=== PATIENT | male | born 1980 | race Caucasian/White ===

== ENCOUNTER 2019-11-15 22:41 | Inpatient (IN) | payer SELFPAY ==
[~2019-11-15] VITALS: Ht 190.5 cm; Wt 81.3 kg
[2019-11-15 23:15] LABS: PCO2 Arterial 62.1 mmHg (35-45); PO2 Arterial 117 mmHg (80-100)
[2019-11-15 23:16] LABS: pH Blood Arterial 6.99 (7.35-7.45)
[2019-11-15 23:33] LABS: Source, Urine Catheter
[2019-11-15 23:40] LABS: BASOPHILS ABSOLUTE AUTO 0.12 K/mm3 (0.00-0.23); BASOPHILS PERCENT AUTO 1 % (0-2); EOSINOPHILS ABSOLUTE AUTO 0.29 K/mm3 (0.00-0.68); EOSINOPHILS PERCENT AUTO 2 % (0-6); Hematocrit 45.4 % (37.0-53.0); Hemoglobin 14.2 g/dL (13.5-17.5); IMMATURE GRAN ABSOLUTE AUTO 0.48 K/mm3 (0.00-0.10); IMMATURE GRAN PERCENT AUTO 3 % (0-1); LYMPHOCYTES PERCENT AUTO 42 % (21-46); MONOCYTES ABSOLUTE AUTO 1.02 K/mm3 (0.16-1.47); MONOCYTES PERCENT AUTO 7 % (4-13); Mean Corpuscular HGB 28.5 pg (26.0-34.0); Mean Corpuscular HGB Conc 31.3 g/dL (31.5-36.5); Mean Corpuscular Volume 91 fL (80-100); Mean Platelet Volume 9.9 fL (9.1-12.4); NEUTROPHILS ABSOLUTE AUTO 6.64 K/mm3 (1.96-9.15); NEUTROPHILS PERCENT AUTO 45 % (41-73); Platelet Count 371 K/mm3 (150-400); RDW Coefficient Variation 13.7 % (11.7-14.2); RDW Standard Deviation 46.3 fL (35.1-46.3); Red Blood Cell Count 4.99 M/mm3 (4.30-5.90); White Blood Cell Count 14.75 K/mm3 (4.00-11.30)
[2019-11-15 23:41] LABS: Bilirubin, Urine Neg (Neg); Blood, Urine 2+ (Neg); Glucose Qualitative, Urine Neg (Neg); Ketones, Urine 1+ (Neg); Leukocyte Esterase, Urine 1+ (Neg); Nitrite, Urine Neg (Neg); Protein, Urine 2+ (Neg); Specific Gravity, Urine 1.025 (1.003-1.022); Urobilinogen, Urine NORM (Normal)
[2019-11-15 23:44] LABS: Appearance, Urine Hazy (Clear); Color, Urine Yellow (P-Yellow)
[2019-11-15 23:50] LABS: Amorphous Mod (0-Heavy); Bacteria Mod /hpf; Spermatozoa Few /hpf; Squamous Epithelial Cells Rare /hpf (Few); White Blood Cells, Urine 25-50 /hpf (0-5)
[2019-11-15 23:51] LABS: U Amphetamine Screen DETECTED; U Barbituate Screen Not Detected; U Benzodiazapine Screen Not Detected; U Buprenorphine Screen Not Detected; U Cannabinoids Screen DETECTED; U Cocaine Screen Not Detected; U Methadone Screen Not Detected; U Methamphetamine Screen DETECTED; U Opiates Screen Not Detected; U Oxycodone Screen Not Detected; U Phencyclidine Screen Not Detected; U Propoxyphene Screen Not Detected
[2019-11-16 00:01] LABS: Acetaminophen, Random <2.0 ug/mL (10.0-30.0); CPK Creatine Kinase 395 U/L (39-308); Creatine Kinase MB 3.8 ng/mL (0.0-3.6); Ethanol (Alcohol), Blood, Med 37 mg/dL; Magnesium, Blood 1.9 mg/dL (1.6-2.4); Salicylate 2.9 mg/dL (2.8-20.0); Troponin I 0.072 ng/mL (0.000-0.040)
[2019-11-16 00:37] LABS: Alanine Aminotransfer (ALT/SGP 39 U/L (12-78); Albumin, Blood 3.5 g/dL (3.4-5.0); Albumin/Globulin Ratio 1.1 (0.8-1.8); Alk Phos 89 U/L (50-136); Anion Gap 14 mmol/L (6-16); Aspartate Aminotrans (AST/SGOT 44 U/L (12-37); Bilirubin, Total 0.2 mg/dL (0.1-1.0); Blood Urea Nitrogen 15 mg/dL (8-24); Bun/Creatinine Ratio 11.5 (12.0-20.0); CO2, Blood 17 mmol/L (21-32); Calcium, Blood 7.6 mg/dL (8.5-10.1); Chloride, Blood 110 mmol/L (98-108); Creatinine, Blood 1.31 mg/dL (0.60-1.20); Globulin, Blood 3.1 g/dL (2.2-4.0); Glomerular Filtration Rate >60 (60-); Glucose, Blood 247 mg/dL (70-99); Potassium, Blood 3.6 mmol/L (3.5-5.5); Sodium, Blood 141 mmol/L (136-145); Total Protein, Blood 6.6 g/dL (6.4-8.2)
--- NOTE | 2019-11-16 01:23 | NUR ---
PT ARRIVES TO ICU 4 VIA GURNEY FROM ER. HE IS SEDATED WITH PROPOFOL AT 70 MCG/KG/MIN TO LEFT FOREARM IV ACCESS VIA INFUSION PUMP, PROPOFOL IS PUT TO STANDBY, CLAMPED, AND REMOVED FROM ER GURNEY INFUSION PUMP FOR SLIDE TRANSFER TO BED. SOFT RESTRAINTS ARE NOTED IN PLACE ON ARRIVAL FROM ER. ETT 8.0, 26 AT LIP, 25 AT TEETH AT THIS TIME, RT AT BEDSIDE FOR VENT MANAGEMENT, AC 16, TV 500, FIO2 45%, PEEP 5, PT SATS ARE HIGH 90S WITH THESE SETTINGS, LUNGS ARE CLEAR THROUGHOUT AT THIS TIME, RATE 20. HRR, SINUS ON MONITOR, RATE 80S, PRESSURES IMPROVED FROM REPORTED AT ARRIVAL TO ER, SKIN IS PWD, BRISK CAP REFILL, FINE RASH IS NOTED TO TORSO, NO EDEMA IS NOTED AT THIS TIME, DEFIB PADS ARE NOTED IN PLACE, PER RT AT BEDSIDE, PT WAS SHOCKED X 2 IN ER FOR CARDIOVERSION. HE IS NOTED TO HAVE A COUGH AND SWALLOW REFLEX WITH PROPOFOL ON STANDBY, MINIMAL RESPONSE TO DEEP STERNAL RUB, WILL TITRATE PROPOFOL DOWN TOLERATED AND MONITOR. PUPILS ARE EQUAL BILAT, 1, BRISK BUT SLIGHT REACTION, NO EYE MOVEMENT IS NOTED AT THIS TIME. OROGASTRIC TUBE IS PLACED AND PT TOLERATED WELL, PLACEMENT CONFIRMED WITH RETURN OF GASTRIC CONTENTS WELL AUSCULTATION OF AIR OVER LUQ WITH 60 ML AIR FLUSH, PLACED TO LIS, BROWN/CLEAR DRAINAGE AT THIS TIME, ABD FLAT, ACTIVE BOWEL TONES X 4, NO REACTION TO PALPATION, ABD SOFT. TEMP PROBE BURGOS IN PLACE DRAINING CLEAR YELLOW URINE TO GRAVITY. ORAL CARE PROVIDED, BLOOD IS NOTED IN PT'S MOUTH.
[2019-11-16 03:13] LABS: BASOPHILS ABSOLUTE AUTO 0.05 K/mm3 (0.00-0.23); BASOPHILS PERCENT AUTO 0 % (0-2); EOSINOPHILS ABSOLUTE AUTO 0.12 K/mm3 (0.00-0.68); EOSINOPHILS PERCENT AUTO 1 % (0-6); Hematocrit 42.1 % (37.0-53.0); Hemoglobin 13.9 g/dL (13.5-17.5); IMMATURE GRAN ABSOLUTE AUTO 0.13 K/mm3 (0.00-0.10); IMMATURE GRAN PERCENT AUTO 1 % (0-1); LYMPHOCYTES ABSOLUTE AUTO 2.87 K/mm3 (0.84-5.20); LYMPHOCYTES PERCENT AUTO 16 % (21-46); MONOCYTES ABSOLUTE AUTO 1.37 K/mm3 (0.16-1.47); MONOCYTES PERCENT AUTO 8 % (4-13); Mean Platelet Volume 9.6 fL (9.1-12.4); NEUTROPHILS ABSOLUTE AUTO 13.22 K/mm3 (1.96-9.15); NEUTROPHILS PERCENT AUTO 74 % (41-73); Platelet Count 263 K/mm3 (150-400); RDW Standard Deviation 45.6 fL (35.1-46.3); Red Blood Cell Count 4.79 M/mm3 (4.30-5.90); White Blood Cell Count 17.76 K/mm3 (4.00-11.30)
[2019-11-16 03:14] LABS: Mean Corpuscular Volume 88 fL (80-100)
[2019-11-16 03:37] LABS: Creatine Kinase MB 12.1 ng/mL (0.0-3.6)
[2019-11-16 03:51] LABS: Creatine Kinase MB Index 0.4 (0.0-4.0)
[2019-11-16 06:15] LABS: Base Excess Venous -0.7 mmol/L; Bicarbonate Venous 23.8 mmol/L (24.0-30.0); PCO2 Venous 41.3 mmHg (38-42); PO2 Venous 97.7 mmHg (38-42); pH Blood Venous 7.38 (7.34-7.37)
--- NOTE | 2019-11-16 06:34 | NUR ---
PT NEW ADMIT THIS SHIFT, REMAINS INTUBATED AND SEDATED, PROPOFOL GTT HAS BEEN SLOWLY DECREASED TO 55 MCG/KG/MIN OF THIS TIME, PT IS INCREASINGLY RESPONSIVE TO NOXIOUS STIMULI, CONTINUES WITHOUT RESPONSE TO VERBAL STIMULI, PUPILS REMAIN AT 1 WITH BRISK REACTION BILAT. HRR, CONTINUES IN SINUS, RATE 80S, PRESSURES MAINTAINING, SKIN REMAINS PWD, NO EDEMA. RASH TO TORSO CONTINUES WITHOUT CHANGE. LUNGS REMAIN CLEAR THROUGHOUT, SATS MAINTAIN WITH VENT SETTINGS UNCHANGED, RATE REMAINS HIGH TEENS LOW 20S. TEMP PROBE BURGOS IN PLACE, PT AFEBRILE SINCE ARRIVAL TO ICU, CLEAR YELLOW URINE DRAINING TO GRAVITY ALTHOUGH SMALL AMOUNT OF SEDIMENT WAS NOTED IN TUBING WITH EMPTYING DRAINAGE BAG FOR I&O THIS AM.
[2019-11-16 06:43] LABS: Influenza A Negative (NEGATIVE); Influenza B Negative (NEGATIVE)
--- NOTE | 2019-11-16 09:08 | NUR ---
PT SEDATED ON PROPOFOL AT 55MCG FOR MECH VENT. PT PARTIALLY OPENS EYES, SOMEWHAT AGITATED, VENT STACKING. PT DOES NOT FOLLOW DIRECTIONS. IV W PROPOFOL FOUND TO BE LEAKING. NEW IV STARTED. FENT 50MCG GIVEN, PROPOFOL REMAINS AT 55MCG; PT NOW ADEQUATELY SEDATED. BP, HEART RATE/RHYTHM STABLE. SATS 100% ON 45% FIO2. PT FOUND TO BE HYPOTHERMIC AT 96.1 VIA BURGOS CATH TEMP PROBE. WARM BLANKETS PLACED. TEMP CONT TO DECREASE DOWN TO 95.9. BEAR HUGGER PLACED. PT HAS VERY POOR URINE OUTPUT AT APPROX 11CC/HR. WILL UPDATE DR LEÓN.
--- NOTE | 2019-11-16 09:49 | NUR ---
DR LEÓN IN TO SEE PT; FULL UPDATE GIVEN.
--- NOTE | 2019-11-16 11:02 | NUR ---
20G IV TO PT'S LEFT WRIST STARTED IN ER/NOT CHARTED. THIS IV WAS FOUND TO BE LEAKING. IV DC'D INTACT. IV TO PT'S RIGHT FOOT PLACED BY ED/NOT CHARTED. THIS IV DC'D INTACT D/T LOCATION. 2 PIV STARTED W/O DIFFICULTY; PT TOW.
--- NOTE | 2019-11-16 12:00 | NUR ---
AT 1200 PT'S TEMP 98.2; CALLIE MOULTON PLACED ON STANBY
--- NOTE | 2019-11-16 13:06 | NUR ---
Echocardiogram completed.
[2019-11-16 13:58] LABS: Troponin I 0.647 ng/mL (0.000-0.040)
--- NOTE | 2019-11-16 14:37 | NUR ---
PT WITH NO URINE OUTPUT SINCE 1130; DR LEÓN NOTIFIED. UNABLE TO FLUSH CATHETER D/T PLUG. CATHETER DC'D AND NEW 16F COUDE PLACED W/O DIFFICULTY. 350CC YELLOW URINE OUTPUT WITHIN 5MIN. URINE SEDIMENT IMPROVED. DR LEÓN CHANGED VENT SETTINGS TO SPONT PS 2, 40% FIO2. PT TOLERATING WELL. PT WOKE UP, EYES OPENED, MOUTHED WORDS, WAS UNABLE TO FOLLOW DIRECTIONS. FENT IVP GIVEN FOR AGITATION. PT SLEEPING NOW, APPEARS COMFORTABLE. PT'S MOTHER CALLED TO UPDATE HER HE HAS NO CHILDREN AND SHE IS NEXT OF KIN; ROMELIA NOTIFIED. PT'S COUSIN WHOM IS LISTED EMERGENCY CONTACT AT BEDSIDE.
--- NOTE | 2019-11-16 16:33 | NUR ---
PT REQUIRING MORE SEDATION D/T INCREASED AGITATION. PROPOFOL INCREASED FROM 65MCG TO 75MCG. FENT GIVEN Q 2-3HRS. RECTAL TEMP PROBE PLACED. 98.2 DEGREES. BP TRENDING UP WITH SOME MILD HTN.
--- NOTE | 2019-11-16 19:00 | NUR ---
ASSUMED CARE OF PT, BEDSIDE REPORT RECEIVED. PT IS GRIMACING, RESTLESS IN BED, PULLING AGAINST BILAT WRIST RESTRAINTS AND COUGHING AT THIS TIME. PROPOFOL GTT AT 75 MCG/KG/MIN, FENTANYL 100 MCG IV ADMIN BY OFFGOING RN JAYANT HARRINGTON. PT REMAINS INTUBATED WITH 8.0 ETT, 26 CM AT TEETH, VENT IS SET ON SPONTANEOUS, RESP RATE NEAR 20 AT THIS TIME, TIDAL VOLUMES ARE 5-600, SATS ARE MID TO UPPER 90S, RT AT BEDSIDE FOR VENT CHECK. HRR, SINUS ON MONITOR WITH RATE IN THE 70-80S, PRESSURES ARE MAINTAINING AT THIS TIME, SKIN IS PWD, PEDAL PULSES ARE FULL AND EQUAL BILAT, NO EDEMA IS NOTED. BURGOS CATH IN PLACE, NO LONGER TEMP PROBE, URINE IS DARK YELLOW IN UROMETER, APPROX 30 ML PRESENT AT THIS TIME.
--- NOTE | 2019-11-16 19:30 | NUR ---
RESTLESSNESS/AGITATION PT RESTLESS, COUGHING, BITING AT ETT, PULLING AGAINST BILAT WRIST RESTRAINTS, DOES NOT REDIRECT WELL AT THIS TIME, PROPOFOL GTT INCREASED TO 90 MCG/KG/MIN AT THIS TIME, WILL MONITOR.
--- NOTE | 2019-11-16 20:00 | NUR ---
ASSESSMENT PT IS RESTING QUIETLY AT THIS TIME, DOES OPEN EYES WITH ORAL CARE, HOWEVER TOLERATES WELL. SATS ARE NOTED TO BE DECREASING TO HIGH 80S WITH VENT SETTINGS UNCHANGED. LUNG SOUNDS ARE COARSE THROUGHOUT, ETT SUCTIONED, PRODUCTIVE OF MODERATE AMOUNT OF THICK GREEN SPUTUM, DISCUSSED LUNG SOUNDS WITH RT VIA VOCERA, LUNG SOUNDS WERE CLEAR AT THE TIME OF BEDSIDE REPORT. PT LUNG SOUNDS RETURN TO CLEAR POST PT COUGH AND ETT SUCTIONING, SATS RETURN TO BASELINE. ACTIVE BOWEL TONES ARE PRESENT AT THIS TIME, ABD SOFT, NO GUARDING NOTED WITH PALPATION. RASH TO TORSO IS IMPROVED.
--- NOTE | 2019-11-17 03:20 | NUR ---
ELEVATED TEMP RECTAL PROBE TEMP NOTED 102.9, ICE PACK PLACED TO GROIN AND RIGHT ANTERIOR CLAVICLE, FAN PLACED ON BEDSIDE TABLE AND SET ON HIGH. CALL PLACED TO HOSPITALIST REMELT PAN TANK OPERATOR REGARDING INCREASED TEMP. TYLENOL ORDERS RECEIVED.
[2019-11-17 03:54] LABS: BASOPHILS ABSOLUTE AUTO 0.03 K/mm3 (0.00-0.23); BASOPHILS PERCENT AUTO 0 % (0-2); EOSINOPHILS ABSOLUTE AUTO 0.14 K/mm3 (0.00-0.68); EOSINOPHILS PERCENT AUTO 2 % (0-6); Hematocrit 43.6 % (37.0-53.0); Hemoglobin 13.5 g/dL (13.5-17.5); IMMATURE GRAN ABSOLUTE AUTO 0.01 K/mm3 (0.00-0.10); IMMATURE GRAN PERCENT AUTO 0 % (0-1); LYMPHOCYTES ABSOLUTE AUTO 1.66 K/mm3 (0.84-5.20); LYMPHOCYTES PERCENT AUTO 20 % (21-46); MONOCYTES ABSOLUTE AUTO 0.34 K/mm3 (0.16-1.47); MONOCYTES PERCENT AUTO 4 % (4-13); Mean Corpuscular HGB 28.2 pg (26.0-34.0); Mean Corpuscular Volume 91 fL (80-100); Mean Platelet Volume 10.1 fL (9.1-12.4); NEUTROPHILS ABSOLUTE AUTO 6.01 K/mm3 (1.96-9.15); NEUTROPHILS PERCENT AUTO 73 % (41-73); Platelet Count 220 K/mm3 (150-400); RDW Coefficient Variation 14.5 % (11.7-14.2); RDW Standard Deviation 48.8 fL (35.1-46.3); Red Blood Cell Count 4.78 M/mm3 (4.30-5.90); White Blood Cell Count 8.19 K/mm3 (4.00-11.30)
--- NOTE | 2019-11-17 04:00 | NUR ---
ELEVATED TEMP TEMP INCREASED TO 103.8, TYLENOL MS AVAILABLE FROM PHARMACY AND ADMIN, ADD ICE PACKS PLACED TO AXILLA BILAT. WILL CONT TO MONITOR.
[2019-11-17 04:12] LABS: Anion Gap 6 mmol/L (6-16); Blood Urea Nitrogen 15 mg/dL (8-24); Bun/Creatinine Ratio 12.8 (12.0-20.0); CO2, Blood 28 mmol/L (21-32); Calcium, Blood 7.9 mg/dL (8.5-10.1); Chloride, Blood 109 mmol/L (98-108); Creatinine, Blood 1.17 mg/dL (0.60-1.20); Glomerular Filtration Rate >60 (60-); Glucose, Blood 76 mg/dL (70-99); Potassium, Blood 3.6 mmol/L (3.5-5.5); Sodium, Blood 143 mmol/L (136-145)
--- NOTE | 2019-11-17 05:30 | NUR ---
SPOKE WITH DR LEÓN REGARDING PROPOFOL AND FENTANYL REQUIREMENTS FOR SEDATION THIS SHIFT, PT ELEVATED TEMP, AND SPUTUM SUCTIONED FROM ETT. ORDERS RECEIVED. WILL INITIATE PRECEDEX ON ARRIVAL FROM PHARMACY AND TITRATE PROPOFOL PER ORDERS.
--- NOTE | 2019-11-17 06:50 | NUR ---
PT REMAINS INTUBATED, VENT REMAINS ON SPONT WITH PEEP AT 5, FIO2 TITRATED UP TO 60% THROUGHOUT SHIFT SECONDARY TO PT SATS DECREASING TO MID 80S, COUGH FREQUENCY HAS INCREASED, SPUTUM PRODUCTION HAS INCREASED, COLOR LIGHTENED FROM GREEN TO BROCK/GREEN, LUNGS INITIALLY COARSE BUT CLEARED WITH SUCTIONING PROGRESSED TO MAINTAINING COARSE AFTER SUCTION. SEDATION REQUIREMENTS INCREASED PROPOFOL AT 90 MCG/KG/MIN MOST OF THIS SHIFT, ATTEMPTS TO TITRATE DOWN TO 85 REPEATEDLY RESULTED IN PT SITTING UP AND PULLING AGAINST BILAT WRIST RESTRAINTS, DID NOT FOLLOW DIRECTIONS, FENTANYL 100 MCG IV REQUIRED EVERY 1-2 HOURS IN ADDITION TO PROPOFOL, DISCUSSED SEDATION REQUIREMENTS WITH DR LEÓN THIS AM AND ORDERS RECEIVED FOR PRECEDEX AND ATIVAN AND TO KEEP PROPOFOL LESS THAN 60 MCG/KG/MIN, PRECEDEX INFUSION STARTED AT 0.2 MCG/KG/HR AND TITRATED TO 0.4 MCG/KG/HR PT IS TOLERATING WELL OF THIS TIME. TEMP INCREASED TO MAX OF 104.4, PT HAS ICE TO BILAT AXILLA, RIGHT GROIN, AND RIGHT CLAVICLE WELL TYLENOL ADMIN AL AT 0358 THIS AM, TEMP HAS IMPROVED TO 103.1 OF THIS TIME. URINE CLEARED THROUGHOUT SHIFT, WAS GREEN TINGED FROM MIDNOC UNTIL 0500 THIS AM, HAS BEEN CLEAR YELLOW SINCE THAT TIME.
--- NOTE | 2019-11-17 08:21 | NUR ---
PT SEDATED ON PROPOFOL AT 60MCG AND PRECEDEX AT 0.4MCG FOR MECH VENT. BEDSIDE REPORT TAKEN. TEMP 102.2 PER RECTAL PROBE. NEW ICE PACKS PLACED TO PT, FAN ON PT, WET TOWEL TO CHEST. PT BECAME VERY AGITATED, NOT FOLLOWING DIRECTIONS, VENT STACKING, SATS LOW 80%. FENT/ATIVAN GIVEN W GOOD EFFECT. PROPOFOL DECREASED TO 50MCG AND PRECEDEX INCREASED TO 0.7MCG. PT SATS IMPROVED TO HIGH 80'S. RT CALLED. PT SUCTIONED; NO SPUTUM AT THIS TIME, BUT DID HAVE COPIOUS AMTS OF THICK YELLOW/CREAM SPUTUM LAST NOCT PER NIGHT RN. DR LEÓN CALLED; PEEP INCREASED TO 8, PT PLACED BACK ON AC16/TV500/FIO2 AT 100%. LUNGS VERY DIMINISHED TO BASES, COARSE TO CARROLL. PTS SATS NOW 94-95%. PT'S MOM CALLED AND GIVEN UPDATE.
--- NOTE | 2019-11-17 08:44 | NUR ---
DR LEÓN AT BEDSIDE. LARGE SPUTUM SAMPLE CREAM/BROCK SENT TO LAB. CPT STARTED. TEMP 102.4
[2019-11-17 10:22] LABS: CPK Creatine Kinase 8067 U/L (39-308)
--- NOTE | 2019-11-17 10:33 | NUR ---
DR LEÓN UPDATED FAMILY. DR LEÓN INCREASED PEEP TO 10, AND DECREASED FIO2 TO 80%. PT SATS TEMP INCREASED TO 90-92%, BUT THEN FELL TO 86%. RT AT BEDSIDE FIO2 INCREASED TO 100%. PT MAY REQUIRE NIMBEX. TYLENOL PT GIVEN FOR TEMP 102.2.
[2019-11-17 10:57] LABS: PCO2 Arterial 40.1 mmHg (35-45); PO2 Arterial 51.3 mmHg (80-100)
--- NOTE | 2019-11-17 11:06 | NUR ---
ABG SHOWS HYPOXIA, PT'S SATS 96%, PT USING ACCESSORY MUSCLES. DR BARRIOS NOTIFIED. ORDERS GIVEN TO START NIMBEX GTT.
--- NOTE | 2019-11-17 11:40 | NUR ---
NIMBEX STARTED AT 2MCG/KG/MIN. PROPOFOL PLACED ON STANDBY FOR HYPOTENSION. BIS MONITOR PLACED AND SHOWS BASELINE 70'S. TO4: 44. DR LEÓN AT BEDSIDE TO CHECK ON PT. TEMP 101.8; WILL GIVE IBUPROFEN ORDERED.
--- NOTE | 2019-11-17 11:49 | NUR ---
BP STABLE; PROPOFOL RESTARTED AT 40MCG. RESP RATE AND RESP EFFORT SLOWLY DECREASING, SATS STARTING TO INCREASE.
--- NOTE | 2019-11-17 14:37 | NUR ---
PT'S O2 SAT HAVE BEEN TRENDING DOWN BETWEEN [address] LEÓN HAS BEEN IN THE UNIT AND AT BEDSIDE OFTEN TO EVALUATE PT. STAT CHEST XRAY COMPLETED TO RE-ASSESS SMALL PNEUMO; NO SIGNIFICANT CHANGES IN PNEUMOTHORAX, THERE ARE INCREASING INFILTRATES IN BASES. PEEP INCREASED TO 14, FIO2 AT 100%. PT PLACED FLAT IN PREP FOR REPOSITIONING AND SATS INCREASED TO 87-90. LUNGS SOUNDS HAVE NOT CHANGED FROM THIS AM. AWAITING PCR. PT ADEQUATELY PARALYZED AND SEDATED. BIS READING 40. TO4 0/0. PT HYPOTENSIVE WITH MAPS 50'S NOW THAT PEEP HAS INCREASED. PICC LINE TO BE PLACED. IF SATS DO NOT IMPROVE WITHIN THE HOUR DR LEÓN MAY ORDER FOR PT TO BE PRONED. KAIO STARTED.
[2019-11-17 15:30] LABS: PCO2 Arterial 63.8 mmHg (35-45); PO2 Arterial 63.1 mmHg (80-100)
[2019-11-17 15:31] LABS: pH Blood Arterial 7.18 (7.35-7.45)
[2019-11-17 15:44] LABS: Adenovirus Not Detected (NOT DETECT); Bordetella pertussis Not Detected (NOT DETECT); Chlamydophila pneumoniae Not Detected (NOT DETECT); Coronavirus 229E Not Detected (NOT DETECT); Coronavirus HKU1 Not Detected (NOT DETECT); Coronavirus NL63 Not Detected (NOT DETECT); Coronavirus OC43 Not Detected (NOT DETECT); Human Metapneumovirus Not Detected (NOT DETECT); Human Rhinovirus/Enterovirus Not Detected (NOT DETECT); Influenza A/2009-H1 Not Detected (NOT DETECT); Influenza A/H1 Not Detected (NOT DETECT); Influenza A/H3 Not Detected (NOT DETECT); Influenza B Not Detected (NOT DETECT); Mycoplasma pneumoniae Not Detected (NOT DETECT); Parainfluenza Virus 1 Not Detected (NOT DETECT); Parainfluenza Virus 2 Not Detected (NOT DETECT); Parainfluenza Virus 3 Not Detected (NOT DETECT); Parainfluenza Virus 4 Not Detected (NOT DETECT); Respiratory Syncytial Virus Not Detected (NOT DETECT)
[2019-11-17 17:43] LABS: PCO2 Arterial 52.1 mmHg (35-45); PO2 Arterial 85.5 mmHg (80-100); pH Blood Arterial 7.24 (7.35-7.45)
[2019-11-17 17:44] LABS: Test Name COVID-19
--- NOTE | 2019-11-17 17:44 | NUR ---
PT PLACED IN PRONE POSITION AT 1600. DR LEÓN AT BEDSIDE. PT TURNED WITH 4 RN'S, 2 AT EACH SIDE, AN RT AT THE HEAD MONITORING AIRWAY AND ETT, AND A RT STUDENT TO ASSIST. PT PRONE W/O COMPLICATIONS. HEAD TURNED TOWARDS R SIDE FACING VENT. SATS IMMEDIATELY RAISED TO MID 90'S THEN DROPPED. DR LEÓN RAISED PEEP UP TO 16. SATS THEN RAISED TO HIGH 90'S. PEEP NOW DOWN TO 12, FIO2 AT 98%, SATS 99-100%. PICC PLACED PRIOR TO PRONING PT. PICC PLACED W/O DIFFICULTY. LEVOPHED STARTED AT 1647 AT 6MCG, AND HAS BEEN TITRATED DOWN TO 3MCG; WILL CONT TO TITRATE DOWN TOLERATED. TEMP NOW 98.6 PER RECTAL PROBE. BIS READING 40-50. PT IN NSR, RATE AT 85. PROPOFOL AT 40MCG, NIMBEX AT 2MCG.
--- NOTE | 2019-11-17 18:25 | NUR ---
LEVOPHED DECREASED TO 2MCG. PT TURNED PRONE FACING RIGHT, 4RN'S, 1RT, AND DR LEÓN ASSISTED W TURN. FIO2 DOWN TO 70%, SATS 98%.
--- NOTE | 2019-11-17 19:30 | NUR ---
ASSUMED CARE BEDSIDE REPORT RECIEVED. PT IS INTUBATED, SEDATED, AND PARALYZED. PT IN PRONE POSITION AT THIS TIME. VENT SETTINGS AC 20, TV 580, PEEP 12, FIO2 70%. PT WITH COPIOUS ORAL AND ETT SECRETIONS. OGT IN PLACE TO LIS, SCANT BROWN OUTPUT NOTED. PICC TO ADRIANNE C/D/I. PROPOFOL INFUSING AT 40 MCG/KG/MIN INITIALLY, TITRATED UP TO 50 MCG/KG/MIN, NIMBEX AT 2 MCG/KG/MIN, AND NS AT 75 ML/HR. BIS MONITORING IN PLACE READING 40-60'S. TRAIN OF FOUR IS 4/4. PT FURROWED BROW WITH ORAL SUCTION. NO SPONTANEOUS MOVEMENT OF EXTREMITIES NOTED. NO RESTRAINTS IN PLACE. BURGOS IN PLACE WITH YELLOW/SEDIMENT OUTPUT NOTED. RECTAL THERMOMITER IN PLACE. FAMILY AT BEDSIDE UPDATED TO PLAN OF CARE AND PT CONDITION. WILL CONTINUE TO MONITOR.
[2019-11-17 22:10] LABS: Base Excess Venous -3.3 mmol/L; Bicarbonate Venous 21.2 mmol/L (24.0-30.0); PCO2 Venous 50.7 mmHg (38-42); PO2 Venous 88.5 mmHg (38-42); pH Blood Venous 7.28 (7.34-7.37)
--- NOTE | 2019-11-17 22:50 | NUR ---
UPDATE PT REPOSITIONED FROM PRONE TO SUPINE. BED BATH GIVEN. PT HYPOTENSIVE, LEVOPHED RESTARTED. DR LEÓN CALLED AND UPDATED TO CURRENT CONDITION AND VBG. NO NEW ORDERS RECIEVED. WILL CONTINUE TO MONITOR.
[2019-11-18 04:00] LABS: Hematocrit 43.1 % (37.0-53.0); Hemoglobin 13.7 g/dL (13.5-17.5); Mean Corpuscular HGB 28.7 pg (26.0-34.0); Mean Corpuscular HGB Conc 31.8 g/dL (31.5-36.5); Mean Corpuscular Volume 90 fL (80-100); Mean Platelet Volume 10.7 fL (9.1-12.4); Platelet Count 224 K/mm3 (150-400); RDW Coefficient Variation 14.1 % (11.7-14.2); RDW Standard Deviation 47.2 fL (35.1-46.3); Red Blood Cell Count 4.78 M/mm3 (4.30-5.90); White Blood Cell Count 9.62 K/mm3 (4.00-11.30)
[2019-11-18 04:17] LABS: Anion Gap 6 mmol/L (6-16); Blood Urea Nitrogen 15 mg/dL (8-24); Bun/Creatinine Ratio 19.5 (12.0-20.0); CO2, Blood 25 mmol/L (21-32); Calcium, Blood 7.6 mg/dL (8.5-10.1); Chloride, Blood 110 mmol/L (98-108); Creatinine, Blood 0.77 mg/dL (0.60-1.20); Glomerular Filtration Rate >60 (60-); Glucose, Blood 104 mg/dL (70-99); Magnesium, Blood 1.9 mg/dL (1.6-2.4); Phosphorus, Blood 3.7 mg/dL (2.5-4.9); Potassium, Blood 4.3 mmol/L (3.5-5.5); Sodium, Blood 141 mmol/L (136-145)
[2019-11-18 05:33] LABS: PCO2 Arterial 52.9 mmHg (35-45); PO2 Arterial 79.4 mmHg (80-100)
[2019-11-18 05:36] LABS: BAND PERCENT MAN 42 % (0-8); BASOPHILS ABSOLUTE MAN 0.09 K/mm3 (0.00-0.23); BASOPHILS PERCENT MAN 1 % (0-2); EOSINOPHILS PERCENT MAN 0 % (0-6); LYMPHOCYTES ABSOLUTE MAN 1.82 K/mm3 (0.84-5.20); LYMPHOCYTES PERCENT MAN 19 % (21-46); METAMYELOCYTE ABSOLUTE MAN 0.09 K/mm3 (0.00-0.00); METAMYELOCYTE PERCENT MAN 1 % (0-0); MONOCYTES ABSOLUTE MAN 0.19 K/mm3 (0.16-1.47); MONOCYTES PERCENT MAN 2 % (4-13); SEG NEUTROPHILS PERCENT MAN 35 % (41-73); TOTAL CELLS COUNTED 100
[2019-11-18 05:37] LABS: pH Blood Arterial 7.27 (7.35-7.45)
--- NOTE | 2019-11-18 06:14 | NUR ---
SHIFT SUMMARY NO ACUTE CHANGES THIS SHIFT. PT REMAINS INTUBATED, SEDATED, AND PARALYZED. VENT SETTINGS AC 20, TV 580, PEEP 12, FIO2 60%. PT WITH MINIMAL SECRETIONS AFTER POSITIONING BACK TO SUPINE. VITAL SIGNS HAVE REMAINED STABLE. PICC TO ADRIANNE C/D/I. PROPOFOL INFUSING AT 50 MCG/KG/MIN, NIMBEX CURRENTLY AT 2 MCG/KG/MIN, DOWN FROM 3 MCG/KG/MIN. NS AT 75 ML/HR. LEVOPHED CURRENTLY ON STANDBY. BIS MONITORING IN PLACE, PT REMAINED BETWEEN 40-60 ON BIS MONITOR. TRAIN OF FOUR HAS REMAINED 4/4. OGT IN PLACE, CLAMMPED. BURGOS IN PLACE WITH DARK TEA COLORED OUTPUT. NO FAMILY AT BEDSIDE. WILL CONTINUE TO MONITOR AND REPORT OFF TO ONCOMING RN.
--- NOTE | 2019-11-18 08:00 | NUR ---
ASSUMED PT CARE. PT REMAINS INTUBATED, SEDATED AND PARALYZED. BIS 40-60. TO4 12/06 @ 0715. PT GRIMACED WITH PUPIL CHECK. NIMBEX DRIP TITRATED UP TO 2.5 MCG/KG/MIN. PROPOFOL DRIP CONTINUES @ 50 MCG/KG/MIN. ECG SHOWS SR TO ST 90-120'S. SBP TRENDING 130'S-LEVOPHED DRIP ON STANDBY @ 0715. TEMP 100.2. ETT 8.0/26 @ TEETH. VENT: AC 20, TV 580, PEEP 12, FIO2 60%. SATS>95% LUNGS CLEAR. OGT CONFIRMED PLACEMENT WITH AUSCULTATION. PIVOT 1.5 INITIATED @ 10 CC/HR WITH H20 @ 30ML FLUSH EVERY 4 HOURS. BURGOS TO BSD WITH ADEQUATE AMOUNT OF DARK, YELLOW URINE OUTPUT.
--- NOTE | 2019-11-18 08:23 | NUR ---
VENT SETTINGS CHANGED-FIO2 TO 50%, PEEP TO 10.
--- NOTE | 2019-11-18 09:15 | NUR ---
ETT TO 29 CM @ LIP PER DR. FISHER ORDERS.
--- NOTE | 2019-11-18 12:06 | NUR ---
PT REMAINS INTUBATED, SEDATED, AND PARALYZED. BIS 30, TO4 4/4 AND PT HR AND BP TRENDING UP- TEMP 100.6. INCREASED NIMBEX TO 3 MGC/KG/MIN AND PROPOFOL TO 60 MCG/KG/MIN. RR 24-MAINTAINING SATS>90% ON FIO2 50%-PEEP REMAINS AT 10. INSPIRATORTY WZ AUSCULTATED TO LEFT LUNG GARCIA. BT'S HYPERACTIVE. RESIDUAL CHECK 10 CC REFED AND TF INCREASED TO 25 CC/R. BURGOS DRAINING ADEQUATE AMOUNT OF TEA COLORED URINE.
--- NOTE | 2019-11-18 13:43 | NUR ---
FIO2 DECREASED TO 45%
--- NOTE | 2019-11-18 14:33 | NUR ---
TEMP 101.1. HR 110. BP 156/97. BIS 30 WITH NIMBEX @ 3 MCG/KG/MIN AND PROPOFOL @ 60 MCG/KG/MIN. MED WITH FENTANYL 50 MCG IVP X 1. PT INCONTINENT OF STOOL-KEANU CARE AND PARTIAL LINEN CHANGE COMPLETED.
--- NOTE | 2019-11-18 15:19 | NUR ---
TEMP 101.1. COOL BATH GIVEN. COMPLETE LINEN CHANGE COMPLETED- AFTER TURNING PT-SATS 88%. SUCTIONED LARGE AMOUNT OF THICK, PALE YELLOW SECRETIONS. PT HAS BLOOD TINGED NASAL DRAINAGE WELL. BIS 40'S-HR NOW 90'S.
--- NOTE | 2019-11-18 15:31 | NUR ---
SATS 88-90%. PT SUCTIONED-LARGE AMOUNT OF THICK,PALE YELLOW SPUTUM. FIO2 TITRATED UP TO 50% TO KEEP SATS>90%
--- NOTE | 2019-11-18 16:15 | NUR ---
BIS 28-30-BP 186/104-MED WITH FENTANYL 50 MCG IVP X 1 SEE EMAR.
--- NOTE | 2019-11-18 17:16 | NUR ---
BIS 42. HR 90'S SR. TEMP 100.8. PT REPOSITIONED TO LEFT SIDE. SATS 91% PRIOR TO REPOSITIONING-INCREASED TO 95% ONCE PT ON LEFT SIDE.
--- NOTE | 2019-11-18 17:25 | NUR ---
3920 IN VS 850 OUT THIS SHIFT.
--- NOTE | 2019-11-18 18:32 | NUR ---
DR. FISHER UPDATED TO PT I&O AND CURRENT VS. MD AWARE THAT SBP TRENDING 180'S AND THAT PT HAS SCLERAL EDEMA. ORDER GIVEN FOR LABETOLOL PRN-SEE EMAR.
--- NOTE | 2019-11-18 18:43 | NUR ---
BP 190/100 MED WITH LABETOLOL 20MG IVPX1 AND FENTANYL 50 MCG IVP X 1 SEE EMAR.
--- NOTE | 2019-11-18 20:00 | NUR ---
PATIENT INTUBATED AND SEDATED WITH VENT SET AT AC 20, TV 580, PEEP 10, FIO2 45% PROPOFOL AT 6OMCG AND NIMBEX 3MCG WITH BIS 31 AND TRAIN OF 4 4/4 TO RIGHT EYEBROW. DURING ORAL CARE PATIENT RAISING EYEBROWS, NO OTHER MOVEMENT SEEN. OG IN PLACE WITH NO RESIDUAL RATE INCREASED TO GOAL RATE OF 35 CC/HR PLAN TO CONTINUE TO MONITOR FOR RESIDUALS.
[2019-11-19 01:35] LABS: Vancomycin, Trough 7.6 ug/mL (5.0-10.0)
[2019-11-19 04:47] LABS: Hematocrit 40.1 % (37.0-53.0); Hemoglobin 12.8 g/dL (13.5-17.5); Mean Corpuscular HGB 28.8 pg (26.0-34.0); Mean Corpuscular HGB Conc 31.9 g/dL (31.5-36.5); Mean Corpuscular Volume 90 fL (80-100); Mean Platelet Volume 10.5 fL (9.1-12.4); Platelet Count 226 K/mm3 (150-400); RDW Coefficient Variation 14.4 % (11.7-14.2); RDW Standard Deviation 48.5 fL (35.1-46.3); Red Blood Cell Count 4.45 M/mm3 (4.30-5.90); White Blood Cell Count 9.93 K/mm3 (4.00-11.30)
[2019-11-19 05:07] LABS: Alanine Aminotransfer (ALT/SGP 89 U/L (12-78); Albumin, Blood 2.3 g/dL (3.4-5.0); Albumin/Globulin Ratio 0.6 (0.8-1.8); Alk Phos 90 U/L (50-136); Anion Gap 4 mmol/L (6-16); Aspartate Aminotrans (AST/SGOT 65 U/L (12-37); Bilirubin, Total 0.2 mg/dL (0.1-1.0); Blood Urea Nitrogen 11 mg/dL (8-24); Bun/Creatinine Ratio 15.3 (12.0-20.0); CO2, Blood 28 mmol/L (21-32); Calcium, Blood 8.3 mg/dL (8.5-10.1); Chloride, Blood 109 mmol/L (98-108); Creatinine, Blood 0.72 mg/dL (0.60-1.20); Globulin, Blood 3.8 g/dL (2.2-4.0); Glomerular Filtration Rate >60 (60-); Glucose, Blood 122 mg/dL (70-99); Magnesium, Blood 2.2 mg/dL (1.6-2.4); Phosphorus, Blood 1.5 mg/dL (2.5-4.9); Potassium, Blood 4.2 mmol/L (3.5-5.5); Sodium, Blood 141 mmol/L (136-145); Total Protein, Blood 6.1 g/dL (6.4-8.2)
[2019-11-19 05:18] LABS: PO2 Arterial 54.1 mmHg (80-100); pH Blood Arterial 7.35 (7.35-7.45)
[2019-11-19 05:46] LABS: BAND PERCENT MAN 10 % (0-8); BASOPHILS PERCENT MAN 0 % (0-2); EOSINOPHILS PERCENT MAN 0 % (0-6); LYMPHOCYTES ABSOLUTE MAN 1.09 K/mm3 (0.84-5.20); LYMPHOCYTES PERCENT MAN 11 % (21-46); MONOCYTES ABSOLUTE MAN 0.09 K/mm3 (0.16-1.47); MONOCYTES PERCENT MAN 1 % (4-13); NEUTROPHILS ABSOLUTE MAN 8.73 K/mm3 (1.96-9.15); SEG NEUTROPHILS PERCENT MAN 78 % (41-73); TOTAL CELLS COUNTED 100
--- NOTE | 2019-11-19 07:30 | NUR ---
PT REMAINS INTUBATED, SEDATED, AND PARALYZED. BIS 60-65 ON NIMBEX @ 3 MCG/KG/MIN AND PROPOFOL @ 55 MCG/KG/MIN. TO4 4/4. MED WITH FENTANYL 50 MCG IVP X 1 SEDATION ADJUNCT. TEMP 100.8-MED WITH TYLENOL VIA OGT-SEE EMAR. SBP TRENDING >160-MED WITH LABETOLOL 20 MG IVPX1-SEE EMAR. SCLERAL EDEMA CONTINUES. URINE OUTPUT IMPROVED OVER NIGHT-350 CC OF DARK, YELLOW URINE TO UROMETER. ETT REMAINS TO VENT: AC 20, TV 580, PEEP 10, FIO2 45%-SATS >90% LUNGS DIMINISHED T/O LEFT LUNG GARCIA, SCATTERED COARSE RHONCHI ON THE RIGHT. SUCTION PRODUCTIVE OF LARGE AOUNT OF THICK, PALE, YELLOW SPUTUM. MINIMAL RESIDUAL FROM OGTF-TOLERATING PIVOT 1.5 @ GOAL RATE WELL. NA PHOS RIDER INFUSING PER ELECTROLYTE PROTOCOL. WILL RE-CHECK PHOS 2 HOURS AFTER REPLACEMENT IS COMPLETE.
--- NOTE | 2019-11-19 09:32 | NUR ---
SBP TRENDING >160. ADDITIONAL DOSE OF LABATOLOL 20 MG IVP X 1 GIVEN. BIS NOW 45 WITH PROPOFOL @ 55 MCG/KG/MIN AND NIMBEX @ 3 MCG/KG/MIN.
--- NOTE | 2019-11-19 10:14 | NUR ---
TEMP REMAINS 100.4 DESPITE MED WITH TYLENOL. BIS CONTINUES TO TREND IN THE 40'S. BP 178/94 DESPITE MED X 2 WITH LABETOLOL 20 MG IVP-SEE EMAR.
--- NOTE | 2019-11-19 11:04 | NUR ---
SATS>95%-PEEP DECREASED TO 8 BY RT. MIRTHA
--- NOTE | 2019-11-19 11:38 | NUR ---
PT REMAINS INTUBATED, SEDATED, AND PARALYZED.BIS 50. TO4 4/4. PUPILS 2 MM BILATERALLY AND EQUALLY REACTIVE TO LIGHT. TEMP 100.4 SBP 150-160'S. RHYTHM CONTINUES SR. LUNGS WITH BETTER AIR EXCHANGE AUSCULTATED. SCATTERED COARSE RHONCHI THROUGH OUT. MAINTAINS SATS>95% WITH PEEP 8 AND FIO2 45%. FEWER THICK, NOW WHITE SECRETIONS FROM ETT. ORAL SECRETIONS MODERATE AMOUNT OF THICK, BLOOD TINGED SECRETIONS. URINE OUTPUT 1200 CC SO FAR THIS SHIFT.
--- NOTE | 2019-11-19 11:43 | NUR ---
PT TOLERATING TF WELL. MINIMAL RESIDUAL-CBG 150.
--- NOTE | 2019-11-19 12:45 | NUR ---
BIS 65. SBP>160. MED WITH FENTANYL 50 MCGIVP X1 SEDATION ADJUNCT.
--- NOTE | 2019-11-19 13:46 | NUR ---
PT REPOSITIONED SUPINE WITH HOB ELEVATED AT 30 DEGREES. SATS DOWN TO 85%.SUCTION NON-PRODUCTIVE AND SATS UNCHANGED. FOO2 TITRATED UP TO 55% TO KEEP SATS>90%. MIRTHA FROM RT NOTIFIED.
--- NOTE | 2019-11-19 13:56 | NUR ---
SERUM PHOSPHORUS SENT 2 HOURS POST NAPHOS REPLACEMENT PER ELECTROLYTE PROTOCOL. COVID 19 SEND OUT RESULT "UNDETECTED" PER LAB. ISOLATION REMOVED PER INFECTIOUS DISEASE/CONTROL.
--- NOTE | 2019-11-19 14:08 | NUR ---
PEEP RETURNED TO 10 BY MIRTHA RT TO KEEP SATS>90%
--- NOTE | 2019-11-19 15:07 | NUR ---
PHOS 1.7 ADDITIONAL NA PHOS REPLACEMENT ORDERED PER ELECTROLYTE PROTOCOL. WILL REPEAT PHOS 2 HOURS AFTER REPLACEMENT COMPLETE. PT MAINTAINS SATS 92% WITH FIO2 55% AND PEEP REMAINS AT 10. NIMBEX DISCONTINUED BY DR. FISHER.
--- NOTE | 2019-11-19 18:30 | NUR ---
PT HAS REMAINED SEDATED AND INTUBATED.MAINTAINING SATS>90% ON FIO2 55% AND PEEP 10. MED WITH FENTANYL 50 MCG IVP X1 FOR SEDATION ADJUNT-OTHERWISE, HAS TOLERATED THE DISCONTINUATION OF THE NIMBEX WELL. TEMP TRENDING UP THIS EVENING. PT HAS HAD IMPROVED URINE OUPUT TODAY.
--- NOTE | 2019-11-19 19:10 | NUR ---
ASSUME CARE: BEDSIDE REPORT RECIEVED FROM OFF GOING RN [place]. MONITOR INTACT SHOWING SINUS RHYTHM HEART RATE 80'S VENT SETTINGS REMAIN AC 20, TV 580, FIO2 55% PEEP10, RATE 20-24, SPO2 96-9-100% COPIOUS AMT THIN CLEAR ORAL SECREATIONS AND MODERATE AMT THICK YELLOWISH SECREATIONS SX PER ETT WITH ORAL CARE. SCANT AMT LESS THWN 2ML RESIDUAL REFED. LUNG SOUNDS CLEAR/COARSE RHOINCHI UPPER LOBES WITH DECREASED BASES. ABDOMEN SOFT WITH BOWEL SOUNDS FOUR QUADS. BURGOS PATENT DRAINING NIDA URINE. REMAINS IN SOFT WRIST RESTRAINTS BILATERLY. CONTINUE TO MONITOR AND REPORT CHANGE IN PATIENT CONDITION
--- NOTE | 2019-11-19 19:26 | NUR ---
SHIFT SUMMARY: RECEIVED PT FROM OR @ 1630-S/P EXPLORATORY LAPAROTOMY. PT HAD PERFORATED VISCUS AND SPLENECTOMY EBL 3000 ML. MASSIVE TRANSFUSION PROTOCOL IMPLEMENTED IN THE OR. PT RECEIVED 2400 CC OF BLOOD PRODUCTS AND 7 LITERS OF IVF RESUSCITATION IN THE OR. PT INTUBATED-PROPOFOL DRIP STARTED FOR SEDATION. SOFT WRIST RESTRAINTS PLACED TO PREVENT ACCIDENTAL EXTUBATION.PT INTUBATED WITH 7.0 ETT THAT IS 24 @ LIP. PLACEMENT CONFIRMED BY PCXR. VENT: AC 16, TV 400, PEEP 5, FIO2 70%. ABG DRAWN AND RESULTS TO DR. FISHER BY MIRTHA RT. SETTINGS CHANGED TO AC20, FIO2 40% BASED ON THE ABG RESULTS. LUNGS CLEAR. ECG SHOWS ST RATE 120-130'S. RIGHT RADIAL A-LINE IN PLACE. NOT SUTURED IN. COBAN PLACED TO SECURE AND A-LINE ZEROED. MAP DROPPED TO LESS THAN 60 AND SBP 80'S @ APROXIMATELY 1700-LEVOPHED DRIP INITIATED. TITRATING TO MAP 60-65. NGT TO RIGHT NARE WITH MODERATED AMOUNT OF RED/BROWN DRAINAGE TO LIS. MIDLINE INCISION WITH NATALYA WOUND VAC AND ULICES X2 TO LOWER ABDOMEN. BOTH ULICES TO BULB SUCTION-SMALL AMOUNT OF SANGINOUS DRAINAGE. PICC LINE STARTED BY ROSALINDA TERRELL. PT AWAKENED AND NODDED APPROPRIATELY TO YES AND NO QUESTIONS. SHE NODS "YES" WHEN ASKED IF IN ANY PAIN. MED WITH FENTANYL 50 MCG IVP X 1 FOR PAIN AT APROX 1830-SEE EMAR. GLUCOSE 302 COVERED PER HIGH SCALE REGULAR INSULIN. CALCIUM CHLORIDE INITIATED SEE EMAR. UROMETER PLACE TO BURGOS-1000 CC OUT IN OR. CURRENTLY, DRAINING SMALL AMOUNT OF DARK, YELLOW URINE. GEOMETRY TEACHER TO COUNT THE REMAINDER OF URINE OUTPUT. REPORT TO CHRISTIANO HAQUE.
--- NOTE | 2019-11-19 21:19 | NUR ---
FAMILY ON PHONE FOR UPDATE. UPDATE GIVEN
[2019-11-19 22:35] LABS: Phosphorus, Blood 1.7 mg/dL (2.5-4.9)
[2019-11-19 23:37] LABS: Potassium, Blood 3.4 mmol/L (3.5-5.5)
[2019-11-20 05:03] LABS: PCO2 Arterial 47.9 mmHg (35-45); PO2 Arterial 56.8 mmHg (80-100); pH Blood Arterial 7.43 (7.35-7.45)
[2019-11-20 05:55] LABS: BASOPHILS ABSOLUTE AUTO 0.03 K/mm3 (0.00-0.23); BASOPHILS PERCENT AUTO 0 % (0-2); EOSINOPHILS ABSOLUTE AUTO 0.24 K/mm3 (0.00-0.68); EOSINOPHILS PERCENT AUTO 3 % (0-6); Hematocrit 35.4 % (37.0-53.0); Hemoglobin 11.4 g/dL (13.5-17.5); IMMATURE GRAN ABSOLUTE AUTO 0.06 K/mm3 (0.00-0.10); IMMATURE GRAN PERCENT AUTO 1 % (0-1); LYMPHOCYTES ABSOLUTE AUTO 1.25 K/mm3 (0.84-5.20); LYMPHOCYTES PERCENT AUTO 14 % (21-46); MONOCYTES ABSOLUTE AUTO 0.47 K/mm3 (0.16-1.47); MONOCYTES PERCENT AUTO 5 % (4-13); Mean Corpuscular HGB 29.2 pg (26.0-34.0); Mean Corpuscular HGB Conc 32.2 g/dL (31.5-36.5); Mean Corpuscular Volume 91 fL (80-100); Mean Platelet Volume 10.3 fL (9.1-12.4); NEUTROPHILS ABSOLUTE AUTO 6.95 K/mm3 (1.96-9.15); NEUTROPHILS PERCENT AUTO 77 % (41-73); Platelet Count 210 K/mm3 (150-400); RDW Coefficient Variation 14.6 % (11.7-14.2); RDW Standard Deviation 49.1 fL (35.1-46.3); Red Blood Cell Count 3.91 M/mm3 (4.30-5.90)
[2019-11-20 06:14] LABS: Alanine Aminotransfer (ALT/SGP 73 U/L (12-78); Albumin, Blood 2.1 g/dL (3.4-5.0); Albumin/Globulin Ratio 0.6 (0.8-1.8); Alk Phos 93 U/L (50-136); Anion Gap 3 mmol/L (6-16); Aspartate Aminotrans (AST/SGOT 39 U/L (12-37); Bilirubin, Total 0.2 mg/dL (0.1-1.0); Blood Urea Nitrogen 11 mg/dL (8-24); Bun/Creatinine Ratio 17.7 (12.0-20.0); CO2, Blood 32 mmol/L (21-32); Chloride, Blood 109 mmol/L (98-108); Creatinine, Blood 0.62 mg/dL (0.60-1.20); Globulin, Blood 3.5 g/dL (2.2-4.0); Glomerular Filtration Rate >60 (60-); Glucose, Blood 118 mg/dL (70-99); Magnesium, Blood 1.9 mg/dL (1.6-2.4); Phosphorus, Blood 2.2 mg/dL (2.5-4.9); Potassium, Blood 3.1 mmol/L (3.5-5.5); Sodium, Blood 144 mmol/L (136-145); Total Protein, Blood 5.6 g/dL (6.4-8.2)
--- NOTE | 2019-11-20 06:18 | NUR ---
SHIFT SUMMARY : REMAINS INTUBATED SEDATED AND RESTRAINED. MONITOR INTACT SHOWING SINUS TACH HEART RATE 80'S. VENT SETTINGS REMAIN AC 20, TV 580, PEEP 8, FIO2 50% RATE 20-32 SPO2 95-98% LUNG SOUNDS CLEAR UPPER LOBES WITH DECREASED SOUNDS IN THE BASES.ABDOMEN SOFT WITH BOWEL SOUNDS FOUR QUADS. BURGOS PATENT DRAINING NIDA URINE. REMAINS IN SOFT WRIST RESTRAINTS TO PREVENT INADVERTENT REMOVAL OF LINES/TUBES. HAS PERIODS OF AGITATION PULLING ON RESTRAINTS AND REACHING FOR ETT. SUCTION COUPIOUS AMTS ORAL SECREATION THIN CLEAR THICK UELLOWISH SECREATIONS SX PER ETT. MEDICATED WITH 100MCGS FENTANYL FOR AGITATIONS APPROX EVERY TWO HOURS. EYES OCC DEVIATE UPWARDS. WILL RARELY MAKE EYE CONTACT AND TRACK MOVEMENT CONTINUE TO MONITOR AND REPORT CHANGE IN PATIENT CONDITION. SCANT AMTS RESIDUAL REFED WITH ORAL CARE.
--- NOTE | 2019-11-20 08:28 | NUR ---
INITIAL ASSESSMENT PATIENT INTUBATED AND ON SEDATION. PATIENT OPENS EYES WHEN NURSE SAYS NAME. PATIENT FOLLOWING SOME SIMPLE COMMANDS. PATIENT DOES APPEAR ANXIOUS. PATIENT GIVEN PRN FENTANYL FOR SIGNS OF PAIN. PATIENT NOW APPEARS COMFORTABLE. + COUGH AND GAG. TEMP OF 100.0 DEGREES FAHRENHEIT. PATIENT SATTING 90% AND GREATER ON AC 20, TV 580, PEEP 8, FIO2 50%. LUNGS CLEAR THROUGHOUT. MODERATE AMOUNT OF THICK, YELLOW SPUTUM BEING SUCTIONED FROM ETT. COPIOUS AMOUNT OF CLEAR, THIN ORAL SECRETIONS. PATIENT IN SR, HR IN THE 80S. SBP 150S TO 160S. PULSES STRONG. ABDOMEN SOFT, NONDISTENDED, WITH NORMOACTIVE BS NOTED. LAST BM DOCUMENTED YESTERDAY. PATIENT NPO. PIVOT 1.5 INFUSING AT GOAL RATE OF 35 MLS/ HOUR WITH 30 ML WATER FLUSH Q4H. RESIDUAL OF 5 ML OBTAINED AND REINSTILLED. BURGOS DRAINING DARK YELLOW/ CLOUDY URINE. NON-PITTING EDEMA NOTED TO BILAT HANDS. PROPOFOL INFUSING AT 55 MCG/ KG/ MINUTE, NS TKO. PATIENT RECEIVING 2 G MAG AND 20 MM K PHOS FOR REPLACEMENTS THIS AM. BED LOW, CALL LIGHT IN REACH. WILL CONTINUE TO MONITOR PATIENT FREQUENTLY THROUGHOUT SHIFT.
[2019-11-20 09:36] LABS: Vancomycin, Trough 11.7 ug/mL (5.0-10.0)
--- NOTE | 2019-11-20 10:00 | NUR ---
0925- PATIENT DECREASED FROM 55 TO 30 MCG/ KG/ MINUTE OF PROPOFOL. DR. FISHER CHANGED PATIENT FROM AC SETTINGS TO SPONTANEOUS PRESSURE SUPPORT /, 30% FIO2. 0932- PROPOFOL PLACED ON STANDBY. 33- 2 MG IV ATIVAN GIVEN FOR INCREASED AGITATION AND PULLING ON RESTRAINTS. PATIENT INFORMED THAT HE NEEDS TO TRY AND STAY CALM AND RELAXED SO HIS BREATHING/ OXYGENATION CAN BE ASSESSED AND BREATHING TUBE CAN BE DC'D. 38- PRN IV FENTANYL GIVEN FOR SIGNS OF PAIN. 40- PATIENT STARTED ON PRECEDEX DRIP TO HELP WITH AGITATION. 1000- PATIENT GIVEN 2 MG IV ATIVAN TO HELP WITH AGITATION. 1015- PATIENT HAS CALMED DOWN AND IS RESTING QUIETLY IN BED. PATIENT REMAINS RESPONDING TO VERBAL STIMULI.
--- NOTE | 2019-11-20 10:24 | NUR ---
involved in this patient care to [facility]
--- NOTE | 2019-11-20 11:20 | NUR ---
PATIENT EXTUBATED. OG AND TF DC;D. PATIENT SATTING 90% AND GREATER ON 2 L NC.
--- NOTE | 2019-11-20 12:32 | NUR ---
PATIENT SLIGHTLY CONFUSED. PATIENT ORIENTED TO SELF, FAMILY, FOLLOWING DIRECTIONS. PATIENT HAS TEMP OF 99.6 DEGREES FAHRENHEIT. PATIENT SATTING 90% AND GREATER ON 5 L NC. PATIENT COUGHING UP LARGE AMOUNTS OF THICK, YELLOW PHLEGM. PATIENT IN SR TO ST, HR 80S TO 100. SBP 180S TO 190S. OG AND TF DC'D WHEN EXTUBATED. BURGOS NOTED TO HAVE SEDIMENT. PATIENT'S COUSIN IN ROOM AND HAS BEEN IN ROOM SINCE EXTUBATED. NO COMPLAINTS OF PAIN AT THIS TIME. WILL CONTINUE TO MONITOR.
--- NOTE | 2019-11-20 14:06 | NUR ---
DR. FISHER INFORMED OF PATIENT'S CONTINUED HTN DESPITE FREQUENT ADMINISTRATION OF PRN LABETALOL. ORDER RECEIVED.
--- NOTE | 2019-11-20 16:40 | NUR ---
PATIENT RESTING QUIETLY IN BED UPON ENTERING ROOM. PATIENT CALM AND COOPERATIVE. PATIENT ALERT AND ORIENTED EXCEPT TO TOWN. PATIENT KNOWS THAT HE IS IN THE HOSPITAL AND THAT THE LAST THING HE REMEMBERS WAS BEING IN A HOT TUB. PATIENT BELIEVED HE WAS IN [place]. PATIENT HAS CORE TEMP OF 100.2 DEGREES FAHRENHEIT. PATIENT IN SR, HR IN THE 80S. SBP 170S TO 180S DESPITE CLONIDINE PATCH AND PRN LABETALOL. DR. FISHER IS AWARE. PATIENT SATTING 90% AND GREATER ON 2 L NC. PATIENT CONTINUES TO COUGH UP LARGE AMOUNTS OF THICK, YELLOW SPUTUM. PRECEDEX ON SB. PATIENT DENIES PAIN AT THIS TIME. WILL CONTINUE TO MONITOR.
--- NOTE | 2019-11-20 17:07 | NUR ---
DR. FISHER INFORMED OF SBP 160S DESPITE HAVING CLONIDINE PATCH AND 40 MG PRN IV LABETALOL GIVEN. STATED HE WOULD PUT ORDERS IN.
--- NOTE | 2019-11-20 18:17 | NUR ---
SHIFT SUMMARY PATIENT EXTUBATED AT 1120. PATIENT HAS REMAINED CALM AND COOPERATIVE SINCE. PATIENT EXTUBATED WHILE ON PRECEDEX WAS AGITATED. PRECEDEX DRIP PLACED ON STANDBY A FEW HOURS AGO AND PATIENT REMAINS CALM AND COOPERATIVE. PATIENT MOSTLY ORIENTED. PATIENT HAD TMAX OF 100.7 DEGREES FAHRENHEIT. PATIENT GIVEN PRN FENTANYL FOR SIGNS OF PAIN WHILE EXTUBATED. PATIENT HAS BEEN SATTING 90% AND GREATER ON 2 L NC AT THIS TIME. PATIENT CONTINUES COUGHING UP LARGE AMOUNTS OF THICK, YELLOW SPUTUM. PATIENT REMAINS IN SR TO ST, HR 80S TO 100. PATIENT HAS BEEN MOSTLY HYPERTENSIVE THIS SHIFT. PATIENT DOES NOT TAKE ANY HTN MEDS AT HOME. PATIENT STARTED ON CLONIDINE PATCH AND LOPRESSOR PO. PATIENT HAS ALSO BEEN GIVEN PRN LABETALOL NUMEROUS TIMES THIS SHIFT. NO BM THIS SHIFT. PATIENT PASSED SWALLOW EVAL. ON CLEAR DIET AND TO ADVANCE TOLERATED. BURGOS DRAINED ADEQUATE AMOUNT OF DARK YELLOW/ CLOUDY URINE WITH SEDIMENT NOTED. NO CHANGE TO SKIN. PATIENT REPOSITIONED T/O SHIFT. NS TKO. PATIENT RECEIVED REPLACEMENTS FOR MAG, POTASSIUM, AND PHOS THIS AM. SPUTUM CULTURE SENT TO LAB. AQUILINO COLLADO, IN AND OUT T/O DAY. PATIENT HAS NO COMPLAINTS OF PAIN AT THIS TIME. BED LOW, CALL LIGHT IN REACH. WILL BE GIVING REPORT TO ONCOMING FASHION DESIGNER NURSE SHORTLY.
--- NOTE | 2019-11-20 20:20 | NUR ---
REPORT OFF BEDSIDE REPORT GIVEN TO CHRISTIANO HALL TO ASSUME CARE. ALL QUESTIONS ANSWERED. PT IS LAYING IN BED AWAKE, ALERT, ORIENTED, AND COOPERATIVE.
[2019-11-20 23:01] LABS: BASOPHILS ABSOLUTE AUTO 0.03 K/mm3 (0.00-0.23); BASOPHILS PERCENT AUTO 0 % (0-2); EOSINOPHILS ABSOLUTE AUTO 0.17 K/mm3 (0.00-0.68); EOSINOPHILS PERCENT AUTO 2 % (0-6); Hematocrit 32.5 % (37.0-53.0); Hemoglobin 10.5 g/dL (13.5-17.5); IMMATURE GRAN ABSOLUTE AUTO 0.11 K/mm3 (0.00-0.10); IMMATURE GRAN PERCENT AUTO 1 % (0-1); LYMPHOCYTES ABSOLUTE AUTO 0.91 K/mm3 (0.84-5.20); LYMPHOCYTES PERCENT AUTO 9 % (21-46); MONOCYTES ABSOLUTE AUTO 0.69 K/mm3 (0.16-1.47); MONOCYTES PERCENT AUTO 7 % (4-13); Mean Corpuscular HGB 28.6 pg (26.0-34.0); Mean Corpuscular HGB Conc 32.3 g/dL (31.5-36.5); Mean Corpuscular Volume 89 fL (80-100); NEUTROPHILS ABSOLUTE AUTO 7.89 K/mm3 (1.96-9.15); NEUTROPHILS PERCENT AUTO 81 % (41-73); Platelet Count 233 K/mm3 (150-400); RDW Coefficient Variation 14.2 % (11.7-14.2); RDW Standard Deviation 45.6 fL (35.1-46.3); Red Blood Cell Count 3.67 M/mm3 (4.30-5.90)
[2019-11-20 23:22] LABS: Alanine Aminotransfer (ALT/SGP 73 U/L (12-78); Albumin, Blood 2.1 g/dL (3.4-5.0); Albumin/Globulin Ratio 0.6 (0.8-1.8); Alk Phos 89 U/L (50-136); Anion Gap 5 mmol/L (6-16); Aspartate Aminotrans (AST/SGOT 51 U/L (12-37); Bilirubin, Total 0.4 mg/dL (0.1-1.0); Blood Urea Nitrogen 10 mg/dL (8-24); Bun/Creatinine Ratio 14.7 (12.0-20.0); CO2, Blood 30 mmol/L (21-32); Calcium, Blood 7.9 mg/dL (8.5-10.1); Chloride, Blood 108 mmol/L (98-108); Creatinine, Blood 0.68 mg/dL (0.60-1.20); Globulin, Blood 3.5 g/dL (2.2-4.0); Glomerular Filtration Rate >60 (60-); Glucose, Blood 109 mg/dL (70-99); Magnesium, Blood 1.7 mg/dL (1.6-2.4); Phosphorus, Blood 1.6 mg/dL (2.5-4.9); Potassium, Blood 3.3 mmol/L (3.5-5.5); Sodium, Blood 143 mmol/L (136-145); Total Protein, Blood 5.6 g/dL (6.4-8.2); Troponin I 0.035 ng/mL (0.000-0.040)
--- NOTE | 2019-11-20 23:33 | NUR ---
APPROX 2215 PATIENT TURNED ON LEFT SIDE SO STAFF COULD CLEAN HIM, PATIENT EXPERIENCED WHAT APPEARED TO BE WIDE COMPLEX TACH FOR A BREIF PERIOD. GOSMAN WAS PRESENT AND ORDERS GIVEN. EKG INDICATED NSR, BLOOD CULTURES AND OTHER LABS DRAWN, AWAITING RESULTS. PATIENT TEMPERATURE OF 103 WAS TREATED PER EMAR AND PAIN MEDICATIONS WERE GIVEN PER PATIENT REQUEST AND MD ORDERS. APPROX 2300, PATIENTS TEMERATURE AVERAGING APPROX 100.6, SLEEPING SOUNDLY WITH NO MORE CARDIAC EPISODES NOTED, MONITORING CLOSELY.
--- NOTE | 2019-11-21 04:58 | NUR ---
SHIFT SUMMARY: PATIENT REMOVED HIS RECTAL PROBE AT APPROX 2119, BURGOS PATENT AND DRAINING WELL, CATAPRESS PATCH STILL IN PLACE ON RIGHT SHOULDER. LAB DRAW AT APPROX 0 INDICATING LOW ELECTROLYTES. GOSMAN AWARE AND REPLACEMENTS ORDERED AND ADMINISTERED. TROPONINS NEGATIVE AT THIS TIME, INTERMITTENTS SVT X3 APPROX 5 TO 10 BEATS, VSS, CALL LIGHT WITHIN REACH, BED LOW AND LOCKED. NO OTHER ISSUES NOTED AT THIS TIME.
[2019-11-21 05:44] LABS: BASOPHILS ABSOLUTE AUTO 0.04 K/mm3 (0.00-0.23); BASOPHILS PERCENT AUTO 1 % (0-2); EOSINOPHILS ABSOLUTE AUTO 0.22 K/mm3 (0.00-0.68); EOSINOPHILS PERCENT AUTO 3 % (0-6); Hematocrit 32.7 % (37.0-53.0); Hemoglobin 10.7 g/dL (13.5-17.5); IMMATURE GRAN PERCENT AUTO 1 % (0-1); LYMPHOCYTES ABSOLUTE AUTO 1.21 K/mm3 (0.84-5.20); LYMPHOCYTES PERCENT AUTO 14 % (21-46); MONOCYTES ABSOLUTE AUTO 0.81 K/mm3 (0.16-1.47); MONOCYTES PERCENT AUTO 9 % (4-13); Mean Corpuscular HGB Conc 32.7 g/dL (31.5-36.5); Mean Corpuscular Volume 89 fL (80-100); Mean Platelet Volume 9.9 fL (9.1-12.4); NEUTROPHILS ABSOLUTE AUTO 6.47 K/mm3 (1.96-9.15); NEUTROPHILS PERCENT AUTO 73 % (41-73); Platelet Count 245 K/mm3 (150-400); RDW Standard Deviation 45.1 fL (35.1-46.3); Red Blood Cell Count 3.69 M/mm3 (4.30-5.90); White Blood Cell Count 8.85 K/mm3 (4.00-11.30)
[2019-11-21 06:15] LABS: Alanine Aminotransfer (ALT/SGP 71 U/L (12-78); Albumin, Blood 2.1 g/dL (3.4-5.0); Albumin/Globulin Ratio 0.6 (0.8-1.8); Alk Phos 81 U/L (50-136); Anion Gap 5 mmol/L (6-16); Aspartate Aminotrans (AST/SGOT 42 U/L (12-37); Bilirubin, Total 0.4 mg/dL (0.1-1.0); Blood Urea Nitrogen 9 mg/dL (8-24); Bun/Creatinine Ratio 14.2 (12.0-20.0); CO2, Blood 30 mmol/L (21-32); Chloride, Blood 108 mmol/L (98-108); Creatinine, Blood 0.64 mg/dL (0.60-1.20); Globulin, Blood 3.4 g/dL (2.2-4.0); Glomerular Filtration Rate >60 (60-); Glucose, Blood 98 mg/dL (70-99); Magnesium, Blood 2.1 mg/dL (1.6-2.4); Phosphorus, Blood 4.1 mg/dL (2.5-4.9); Potassium, Blood 3.6 mmol/L (3.5-5.5); Sodium, Blood 143 mmol/L (136-145); Total Protein, Blood 5.5 g/dL (6.4-8.2)
--- NOTE | 2019-11-21 08:30 | NUR ---
INITIAL ASSESSMENT PATIENT ALERT AND ORIENTED X 4, FORGETFUL ON RARE OCCASION. PATIENT HAS TEMP OF 99.8 DEGREES FAHRENHEIT. PATIENT DENIES PAIN. PATIENT 1 PERSON ASSIST. WEAK BUT ABLE TO MOVE ALL EXTREMITIES AND REPOSITION SELF IN BED. PATIENT SATTING 90% AND GREATER ON RA. LUNGS CLEAR THROUGHOUT. PATIENT CONTINUES TO COUGH UP LARGE AMOUNT OF THICK, YELLOW SPUTUM. PATIENT IN SR, HR IN THE 80S. BP STABLE. PATIENT HAD RUNS OF VTACH DURING THE NIGHT PER FINISHER POLISHER NURSE. PULSES STRONG. PATIENT HAD LOOSE BM ON FINISHER POLISHER. LORETTA DC'D. URINE DARK NIDA IN COLOR. NON-PITTING EDEMA NOTED TO BILAT HANDS. NS TKO. PATIENT RECEIVED BED BATH THIS AM. BED LOW, CALL LIGHT IN REACH. WILL CONTINUE TO MONITOR FREQUENTLY THROUGHOUT SHIFT.
--- NOTE | 2019-11-21 08:30 | NUR ---
UPDATED DR. FISHER ON PATIENT STATUS. AWARE OF PATIENT'S ACCELERATED HR AND VTACH ON TRAFFIC COURT MAGISTRATE. INSTRUCTED TO PULL PICC OUT 4 CM. STATED TO DC CLONIDINE PATCH BP IMPROVED AND HAS SCHEDULED PO HTN MEDS. INFORMED THAT PATIENT HAD TMAX OF 103.8 DEGREES FAHRENHEIT ON TRAFFIC COURT MAGISTRATE.
--- NOTE | 2019-11-21 12:40 | NUR ---
[place] 1 [place] [facility] [place]IENT REMAINS PLEASANT AND COOPERATIVE. PATIENT HAS TEMPORAL TEMP OF 100.8 DEGREES FAHRENHEIT. PATIENT HAVING LIQUID STOOLS. PATIENT REMAINS SATTING 90% AND GREATER ON RA AND REMAINS COUGHING UP LARGE AMOUNTS OF THICK, YELLOW PHLEGM. PATIENT IN SR, HR IN THE 90S. SBP 130S TO 160S. FAMILY AT BEDSIDE VISITING. NO COMPLAINTS OF PAIN. NO OTHER ACUTE CHANGES TO NOTE ON AT THIS TIME. WILL CONTINUE TO MONITOR.
--- NOTE | 2019-11-21 17:01 | NUR ---
PATIENT SLEEPING SOUNDLY UPON ENTERING ROOM. PATIENT FEBRILE WITH TEMP OF 101.5 DEGREES FAHRENHEIT. PATIENT GIVEN PRN TYLENOL FOR TEMP. PATIENT SATTING 90% AND GREATER ON 2 L NC. HR IN THE 90S. SBP IN THE 140S. NO OTHER ACUTE CHANGES TO NOTE ON AT THIS TIME. DENIES PAIN. WILL CONTINUE TO MONITOR.
--- NOTE | 2019-11-21 17:13 | NUR ---
VALUABLES RETURNED TO PATIENT BY SECURITY EARLIER IN SHIFT.
--- NOTE | 2019-11-21 19:15 | NUR ---
ASSUMED CARE BEDSIDE REPORT RECIEVED. PT IS AWAKE, ALERT, AND ORIENTED. PT IS CALM, COOPERATIVE, AND PLEASANT. PT IS FORGETFUL AT TIMES. FOLLOWS DIRECTIONS APPROPRIATELY. VITAL SIGNS STABLE. PT ON ROOM AIR. PICC TO ADRIANNE C/D/I, SALINE LOCKED. PT WITH POOR APPETITE, BUT STILL WANTS TO PICK AT [employer] FOR AWHILE. PT USING URINAL AT BEDSIDE. NO FAMILY PRESENT. WILL CONTINUE TO MONITOR.
--- NOTE | 2019-11-21 19:43 | NUR ---
SHIFT SUMMARY PATIENT REMAINED ALERT AND ORIENTED X 4, SLIGHTLY FORGETFUL AT TIMES. PATIENT HAD TMAX OF 101.5 DEGREES FAHRENHEIT. PATIENT GIVEN PRN TYLENOL FOR TEMP. PATIENT GIVEN PRN PAIN MED OT FOR COMPLAINT OF PAIN IN TORSO/ STOMACH. PATIENT UP TO CHAIR WITH PT. PATIENT 1 PA- STRONG BUT DECONDITIONED AND UNSTEADY ON FEET. PATIENT REMAINED SATTING RA TO 2 L NC DURING SHIFT. PATIENT CONTINUED TO COUGH UP LARGE AMOUNT OF THICK, YELLOW PHLEGM. PATIENT REMAINED IN SR, HR 80S TO 90S. NO RUNS OF VTACH AFTER PICC LINE PULLED OUT 4 CC. CARDIOLOGY WAS IN TO SEE PATIENT BUT IS NOT CHANGING ANYTHING AT THIS TIME AND WILL CONTINUE TO MONITOR. CLONIDINE PATCH DC'D AND REMOVED THIS SHIFT. SBP RANGED FROM 1-TEENS TO 160S. PATIENT HAD MULTIPLE LIQUID STOOLS THIS SHIFT. POOR APPETITE. BURGOS DC'D; PATIENT HAD ADEQUATE OUTPUT. IVS FLUSHED AND SALINE LOCKED. PATIENT HAD BED BATH THIS SHIFT. NO COMPLAINTS AT THIS TIME. BED LOW, CALL LIGHT IN REACH. REPORT GIVEN TO ASSUMING DEHYDROGENATION CONVERTER OPERATOR NURSE.
--- NOTE | 2019-11-22 04:35 | NUR ---
SHIFT SUMMARY NO ACUTE CHANGES THIS SHIFT. PT HAS REMAINED ALERT AND ORIENTED THROUGHOUT THE SHIFT. PT AWAKE FOR MOST OF THE SHIFT. VITAL SIGNS HAVE REMAINED STABLE. PT PLACED ON 2L O2 NC. PT CONTINUES TO HAVE HARSH AND PRODUCTIVE COUGH. PICC REMAINS C/D/I, SALINE LOCKED. PT TAKING PO INTAKE WELL. PT UP TO BSC INDEPENDENTLY AND USING URINAL TO VOID INDEPENDENTLY. WILL CONTINUE TO MONITOR AND REPORT OFF TO ONCOMING RN.
[2019-11-22 08:10] LABS: BASOPHILS ABSOLUTE AUTO 0.05 K/mm3 (0.00-0.23); BASOPHILS PERCENT AUTO 1 % (0-2); EOSINOPHILS ABSOLUTE AUTO 0.15 K/mm3 (0.00-0.68); EOSINOPHILS PERCENT AUTO 2 % (0-6); Hematocrit 33.8 % (37.0-53.0); Hemoglobin 11.1 g/dL (13.5-17.5); IMMATURE GRAN ABSOLUTE AUTO 0.21 K/mm3 (0.00-0.10); IMMATURE GRAN PERCENT AUTO 2 % (0-1); LYMPHOCYTES ABSOLUTE AUTO 1.52 K/mm3 (0.84-5.20); LYMPHOCYTES PERCENT AUTO 15 % (21-46); MONOCYTES ABSOLUTE AUTO 1.37 K/mm3 (0.16-1.47); MONOCYTES PERCENT AUTO 14 % (4-13); Mean Corpuscular HGB 28.4 pg (26.0-34.0); Mean Corpuscular HGB Conc 32.8 g/dL (31.5-36.5); NEUTROPHILS ABSOLUTE AUTO 6.56 K/mm3 (1.96-9.15); NEUTROPHILS PERCENT AUTO 67 % (41-73); Platelet Count 285 K/mm3 (150-400); RDW Coefficient Variation 13.6 % (11.7-14.2); RDW Standard Deviation 42.9 fL (35.1-46.3); Red Blood Cell Count 3.91 M/mm3 (4.30-5.90); White Blood Cell Count 9.86 K/mm3 (4.00-11.30)
[2019-11-22 08:12] LABS: Mean Corpuscular Volume 86 fL (80-100)
[2019-11-22 08:26] LABS: Anion Gap 7 mmol/L (6-16); Blood Urea Nitrogen 16 mg/dL (8-24); Bun/Creatinine Ratio 23.3 (12.0-20.0); CO2, Blood 25 mmol/L (21-32); Calcium, Blood 8.3 mg/dL (8.5-10.1); Chloride, Blood 108 mmol/L (98-108); Creatinine, Blood 0.69 mg/dL (0.60-1.20); Glomerular Filtration Rate >60 (60-); Glucose, Blood 99 mg/dL (70-99); Potassium, Blood 3.5 mmol/L (3.5-5.5); Sodium, Blood 140 mmol/L (136-145)
--- NOTE | 2019-11-22 09:30 | NUR ---
PATIENT TRANSFERRED FROM ICU 4 TO ROOM 312. REPORT RECEIVED FROM KAILEE. PATIENT IS A/OX4, UP INDEPENDENTLY IN ROOM. PATIENT DENIES ANY PAIN OR DISCOMOFRT. LUNGS CLEAR AND DIM IN THE BASES, ON RA. PATIENT ORIENTED TO ROOM AND USE OF CALL LIGHT. WILL BE PLACED ON TELE WHEN IT ARRIVES. PATIENT HAS BEEN RUNNING SR TODAY. DENIES ANY CP OR SOB. TOLERATING HIS REGULAR DIET. PIC LINE TO UPPER ARM WNL AND SL.
--- NOTE | 2019-11-22 17:42 | NUR ---
PATIENT HAD A GOOD DAY. A/OX4, UP INDEPENDENTLY IN ROOM. 15L O2 VIA NRB TO ATTEMPT TO TREAT PNEUMOTHORAX. CONTINUES TO RUN A LOW GRADE TEMP. TREAT WITH TYLENOL PRN. VSS THIS SHIFT. SKIN INTACT. TOLERATING REGULAR DIET. 3 LUMEN PICC TO ADRIANNE, BANANA BAG INFUSING. CALM AND COOPERATIVE WITH CARE, CALLS APPROPRIATELY FOR ASSISTANCE.
--- NOTE | 2019-11-23 00:15 | NUR ---
PT AT BEGINNING SHIFT WAS NOTED TO NOT BE WEARING NON REBREATHER MASK ON REGULAR BASIS; THIS NURSE ENCOURAGED PATIENT TO WEAR DEVICE DUE TO CURRENT HEALTH ISSUES WITH ACKNOWLEDGEMENT NOTED. 2230 PATIENT IS WEARING NON REBREATHER MASK ORDERED WHILE RESTING IN BED.
--- NOTE | 2019-11-23 05:52 | NUR ---
SHIFT SUMMARY: 38 Y/O MALE RESTED COMFORTABLY IN BED; PT WORE NON REBREATHER MASK 50% OF NIGHT WITH NURSING STAFF ENCOURAGING PATIENT TO WEAR WITH MINIMAL EFFECT NOTED; PT NON RECEIPTIVE AT TIMES TO TEACHING BY STAFF AT HE VOICED HE IS NOT INTERESTED IN LEARNING AT THIS TIME AND IS ANXIOUS TO JUST BE DISCHARGED HOME SOON; DENIES PAIN OR NAUSEA; UP PER SELF IN ROOM WITHOUT ISSUE; BED LOW POSITION WITH CALL LIGHT AT SIDE.
--- NOTE | 2019-11-23 11:45 | NUR ---
Informed Dr. Howard of patient hr of 127-134 Afib. stated she would review and place new orders.
[2019-11-23 13:00] LABS: Anion Gap 5 mmol/L (6-16); Blood Urea Nitrogen 17 mg/dL (8-24); Bun/Creatinine Ratio 27.8 (12.0-20.0); CO2, Blood 27 mmol/L (21-32); Calcium, Blood 8.5 mg/dL (8.5-10.1); Chloride, Blood 107 mmol/L (98-108); Creatinine, Blood 0.61 mg/dL (0.60-1.20); Glomerular Filtration Rate >60 (60-); Glucose, Blood 104 mg/dL (70-99); Magnesium, Blood 2.2 mg/dL (1.6-2.4); Potassium, Blood 3.3 mmol/L (3.5-5.5); Sodium, Blood 139 mmol/L (136-145)
--- NOTE | 2019-11-23 19:05 | NUR ---
PT. LYING IN BED WATCHING TV AND EATING DINNER. THIS MORNING PT'S HR JUMPED INTO THE 150'S WHILE UP TO BATHROOM WITHOUT OXYGEN. GOT PT. BACK TO BED AND PUT HIS OXYGEN BACK ON TO SEE IF HE WOULD RECOVER. PT. DID NOT RECOVER SO DR. BRITO WAS CALLED BUT WAS UNABLE TO REACH HER. KEPT PT IN BED AND OXYGEN IN PLACE. GAVE MORNING MEDS. NOTIFIED BY PASTRY MIXER PT. HAD CONVERTED TO AFIB AT 0945. TRIED TO NOTIFY DR. BRITO WENT TO [employer]IC[employer], LEFT MESSAGE. MOTOR BRAKEMAN FINALLY GOT HOLD OF HER AT 1145 AND SAID SHE WOULD LOOK AT HIS CHART AND PUT ORDERS IN. PT. HEART RATE IS AT 109 NOW BUT HE IS STILL IN AFIB. DENIES PAIN OR SOB, REBREATHER STILL IN PLACE.
[2019-11-24 06:55] LABS: Albumin, Blood 2.4 g/dL (3.4-5.0); Anion Gap 5 mmol/L (6-16); Blood Urea Nitrogen 23 mg/dL (8-24); Bun/Creatinine Ratio 39.2 (12.0-20.0); CO2, Blood 26 mmol/L (21-32); Calcium, Blood 8.7 mg/dL (8.5-10.1); Chloride, Blood 107 mmol/L (98-108); Creatinine, Blood 0.59 mg/dL (0.60-1.20); Glomerular Filtration Rate >60 (60-); Glucose, Blood 103 mg/dL (70-99); Phosphorus, Blood 3.8 mg/dL (2.5-4.9); Sodium, Blood 138 mmol/L (136-145)
--- NOTE | 2019-11-24 07:27 | NUR ---
SHIFT SUMMARY: 38 Y/O MALE RESTED COMFORTABLY ALL SHIFT; PT HAD ONE EPISODE OF TACHYCARDIA--140 WHILE UP WALKING [place] X 1 WITH CHIP BIN OPERATOR WHICH RESOLVED IMMEDIATELY WITH REST TO 106 PER SCIENCE ANALYST--BOLA; HAPPY AND COOPERATIVE; DENIES PAIN OR NAUSEA; BED LOW POSITION WITH CALL LIGHT AT SIDE.
--- NOTE | 2019-11-24 19:15 | NUR ---
PT. LYING QUIETLY. STILL USING NON-REBREATHER AT 15 LITERS A MINUTE. PT. IS STILL IN THE LOW 100'S AND A-FIB. DOES JUMP UP INTO THE 130-150'S WHEN UP MOVING AROUND.
--- NOTE | 2019-11-25 07:39 | NUR ---
PT was on 10 l nonrebreather but intermittantly takes oxygen off and found on room air with sat 88 to 97 at rest. Tachy when off oxygen totally. Afib since yesterday rate 103 to 150 with activity. PT takes oxygen off despite having extensions to reach bathroom. 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 discussed substance aduse and need for cessation. anxious at times.
--- NOTE | 2019-11-25 14:39 | NUR ---
PT TO SURGERY FOR I&D.
--- NOTE | 2019-11-25 16:53 | NUR ---
SHIFT SUMMARY- PT A/OX4, INDEP IN ROOM. PT DENIES ANY COMPLAINTS T/O THE DAY. LS CLEAR, 02 TITRATED FROM 4.5 N/C TO 3L N/C TODAY. TELE AFIB, RATE UP TO 130'S THIS AM WHILE WORKING PT OT BUT HAS BEEN MANAGED THIS AFTERNOON, RATE AT 91 AT 1430. NO OTHER ACUTE CHANGES THIS SHIFT. POSSIBLE D/C HOME TOMORROW.
[2019-11-26 05:34] LABS: Albumin, Blood 2.8 g/dL (3.4-5.0); Anion Gap 8 mmol/L (6-16); Blood Urea Nitrogen 26 mg/dL (8-24); CO2, Blood 26 mmol/L (21-32); Calcium, Blood 9.1 mg/dL (8.5-10.1); Chloride, Blood 104 mmol/L (98-108); Creatinine, Blood 0.77 mg/dL (0.60-1.20); Glomerular Filtration Rate >60 (60-); Glucose, Blood 94 mg/dL (70-99); Phosphorus, Blood 4.5 mg/dL (2.5-4.9); Potassium, Blood 4.7 mmol/L (3.5-5.5); Sodium, Blood 138 mmol/L (136-145)
--- NOTE | 2019-11-26 06:06 | NUR ---
weaned PT to room air with sats 88 to 93 percent. continues on tele with afib with controlled rate until he gets up to ambulate to bathroom this AM then pulse 150 , recovers quickley to 78. Encouraged cessation of substance abuse. verbalized effect of meth on cardia and pulmonary. Hoping to dc home. Says he can purchase pulse oxyimetryif needed. encouraged purse lip breathing able to demonstrate technique. Denies acute distress.
[2019-11-26] MEDS ORDERED: ASPI81CH PO (11:39)
[2019-11-26] MEDS ORDERED: METO100ER PO (11:40)
--- NOTE | 2019-11-26 11:55 | NUR ---
DISCHARGE PT EDUCATED ON AND RECEIVED PRINTED DISCHARGE INSTRUCTIONS AND VERBALIZED AN UNDERSTANDING. PT VERBALIZED HE WILL ESTABLISH WITH A [place]CP [place]. RX CALLED TO [facility] PER PT REQUEST. PICC LINE DC'D BY RETAIL BRANCH MANAGER. PT LEFT WITH ALL PERSONAL BELONGINGS. PICKED UP BY FAMILY MEMBER.
== END 2019-11-26 11:52 | disposition home or self-care (01) | DRG 917 ==
LOC: ER 22:41 → ICUW 11-16 01:04 → ICUE 11-16 01:04 → MEDS 11-22 09:21 → ENPENDDIS 11-26 11:10 → MEDS 11-26 11:52
PROVIDERS: Emergency Medicine; Internal Medicine; Internal Medicine Critical Care Medicine; Internal Medicine Pulmonary Disease; Pharmacist; ADMIT Internal Medicine
PROC: 0BH17EZ Insertion of Endotracheal Airway into Trachea, Via Natural or Artificial Opening (ICD-10-PCS; principal; 2019-11-16)
PROC: 5A1955Z Respiratory Ventilation, Greater than 96 Consecutive Hours (ICD-10-PCS; 2019-11-16)
PROC: 02HV33Z Insertion of Infusion Device into Superior Vena Cava, Percutaneous Approach (ICD-10-PCS; 2019-11-16)
DX: T43.621A Poisoning by amphetamines, accidental (unintentional), initial encounter (principal); J69.0 Pneumonitis due to inhalation of food and vomit; J96.01 Acute respiratory failure with hypoxia; I21.A1 Myocardial infarction type 2; G92 Toxic encephalopathy; J96.02 Acute respiratory failure with hypercapnia; R40.20 Unspecified coma; J93.12 Secondary spontaneous pneumothorax; J90 Pleural effusion, not elsewhere classified; I48.20 Chronic atrial fibrillation, unspecified; M62.82 Rhabdomyolysis; N17.9 Acute kidney failure, unspecified; T40.7X1A Poisoning by cannabis (derivatives), accidental (unintentional), initial encounter; E83.39 Other disorders of phosphorus metabolism; E87.6 Hypokalemia; R56.9 Unspecified convulsions; F10.20 Alcohol dependence, uncomplicated
CPT/HCPCS: 0099U; 31500; 31720; 36415; 36569; 36600; 51702; 51703; 70450; 71045; 80048; 80053; 80069; 80202; 81001; 82140; 82550; 82553; 82803; 82947; 83605; 83690; 83735; 84100; 84132; 84295; 84484; 85025; 87040; 87070; 87077; 87086; 87185; 87186; 87205; 87804; 92960; 93005; 93010; 93306; 94002; 94003; 94761; 96374-59; 96375-59; 96376-59; 97110; 97162; 97165; 99291-25; 99292; A9270-GY; C1751; C9113; G0480; J0153; J0456; J0696; J1644; J1940; J2060; J2704; J3010; J3370; J3411; J3475; J7030; J7042; J7050; J7060; U0001